=== PATIENT | female | born 2000 | race Caucasian/White ===

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

== ENCOUNTER 2020-06-17 09:42 | Emergency (ER) | payer OTHER ==
[2020-06-17 09:49] VITALS: BP 121/77; PULSE 68; RESP 18; TEMP 98.6
--- NOTE | 2020-06-17 10:23 | ED ---
General Adult HPI - General Chief complaint: Nausea/Vomiting/Diarrhea Stated complaint: Nausea Time Seen by Provider: 06/17/20 10:02 Source: patient, RN notes reviewed Mode of arrival: ambulatory Limitations: no limitations - History of Present Illness Initial comments: 21-year-old white female patient in no acute acute distress presents to the emergency room for vaginal bleeding that started on Sunday accompanied by a panic attack she states lasted about 20-30 minutes. Patient states last menstrual period was 2 weeks ago. Patient is sexually active using condoms occasionally for protection. It is not concerned for ST ice. Possibility of . Patient also endorses dysuria but denies vaginal discharge. Patient states on Sunday the vaginal bleeding soaked one pad and then turned to spotting. Sunday still spotting. No bleeding today. Patient states had one episode of diarrhea today, some nausea yesterday. Patient states stopped Lupin 2 months ago because she was having irregular periods. -: days(s) (2) - Related Data Home Medications Medication Instructions Recorded Confirmed Calcium Carb/Magnesium Hydrox 2 tab PO DAILY PRN 05/16/16 05/16/16 [Rolaids Chewable Tablet] Ibuprofen [Motrin] 600 mg PO Q6HR PRN 05/16/16 05/16/16 Previous Rx's Medication Instructions Recorded Famotidine [Pepcid] 20 mg PO BID #20 tablet 05/17/16 Ondansetron Odt [Zofran ODT] 4 mg PO Q8HR PRN #10 tab 08/08/17 Cephalexin [Keflex] 500 mg PO Q6HR 10 Days #40 cap 08/19/19 Allergies Allergy/AdvReac Type Severity Reaction Status Date / Time ibuprofen AdvReac Abdominal Verified 06/17/20 09:45 Pain Last menstrual period: 06/03/20 Review of Systems ROS Statement: Those systems with pertinent positive or pertinent negative responses have been documented in the HPI. ROS Other: All systems not noted in ROS Statement are negative. Past Medical History Past Medical History: No Reported History Additional Past Medical History / Comment(s): UTI History of Any Multi-Drug Resistant Organisms: None Reported Past Surgical History: No Surgical Hx Reported Past Psychological History: Bipolar Smoking Status: Never smoker Past Alcohol Use History: None Reported Past Drug Use History: None Reported General Exam - General Exam Comments Initial Comments: Patient complaining of suprapubic pain with palpation. Abdomen soft, bowel sounds present in all 4 quadrants. Lung sounds clear to auscultation. Limitations: no limitations General appearance: alert, in no apparent distress Head exam: Present: atraumatic, normocephalic, normal inspection Eye exam: Present: normal appearance, PERRL, EOMI. Absent: scleral icterus, conjunctival injection, periorbital swelling ENT exam: Present: normal exam, mucous membranes moist Neck exam: Present: normal inspection. Absent: tenderness, meningismus, lymphadenopathy Respiratory exam: Present: normal lung sounds bilaterally. Absent: respiratory distress, wheezes, rales, rhonchi, stridor Cardiovascular Exam: Present: regular rate, normal heart sounds GI/Abdominal exam: Present: soft (suprapubic tenderness with palpation) Speculum exam: Present: normal speculum exam Extremities exam: Present: normal inspection, full ROM, normal capillary refill. Absent: tenderness, pedal edema, joint swelling, calf tenderness Back exam: Present: normal inspection Neurological exam: Present: alert, oriented X3, CN II-XII intact Psychiatric exam: Present: normal affect, normal mood Course Vital Signs 06/17/20 09:45 Temperature 98.6 F Pulse Rate 68 Respiratory 18 Rate Blood Pressure 121/77 O2 Sat by Pulse 100 Oximetry Medical Decision Making - Medical Decision Making Urinalysis negative for infection, negative for , pelvic exam done no vaginal discharge, no cervical motion tenderness, no adnexal pain. No lesions. No vaginal bleeding noted. Patient reports only soaking one pad on Sunday and then light spotting Sunday, no bleeding today. Patient will be directed to follow up with primary care doctor regarding a new method of control since the lupin was giving her irregular periods. Patient also directed to follow up with primary care doctor about her anxiety as she does not want to medication at this time. Patient directed to start journaling to help identify triggers for her anxiety. - Lab Data Lab Results 06/17/20 06/17/20 Range/Units 10:07 10:07 Urine Color Yellow Urine Appearance Clear (Clear) Urine pH 5.5 (5.0-8.0) Ur Specific [place] 1.019 (1.001-1.035) Urine Protein Negative (Negative) Urine Glucose (UA) Negative (Negative) Urine Ketones Negative (Negative) Urine Blood Negative (Negative) Urine Nitrite Negative (Negative) Urine Bilirubin Negative (Negative) Urine Urobilinogen <2.0 (<2.0) mg/dL Ur Leukocyte Esterase Negative (Negative) Urine HCG, Qual Not Detected (Not Detectd) Disposition Clinical Impression: Vaginal bleeding Disposition: HOME SELF-CARE Condition: Good Additional Instructions: Follow up with the primary care doctor regarding control and anxiety. Return to the emergency room with increased bleeding, pain, fevers or worsening nausea and vomiting. Is patient prescribed a controlled substance at d/c from ED?: No Referrals: Nonstaff,Physician [REFERRING] - 1-2 days Time of Disposition: 11:02
[2020-06-17 10:31] LABS: Appearance,Urine Clear (Clear); Bilirubin,Urine Negative (Negative); Blood,Urine Negative (Negative); Color,Urine Yellow; Glucose,Urine (UA) Negative (Negative); Ketones,Urine Negative (Negative); Leukocyte Esterase,Urine Negative (Negative); Nitrite,Urine Negative (Negative); PH, Urine 5.5 (5.0-8.0); Protein,Urine Negative (Negative); Specific Gravity,Urine 1.019 (1.001-1.035); Urobilinogen,Urine <2.0 mg/dL (<2.0)
== END 2020-06-17 11:16 | disposition home or self-care (01) ==
LOC: EC 09:42
DX: N93.9 Abnormal uterine and vaginal bleeding, unspecified (principal); Z88.6 Allergy status to analgesic agent; Z87.440 Personal history of urinary (tract) infections
CPT/HCPCS: 81003; 81025; 99283

== ENCOUNTER 2021-05-27 21:35 | Emergency (ER) | payer OTHER ==
[2021-05-27 21:42] VITALS: RESP 18
[2021-05-27 22:47] LABS: Appearance,Urine Cloudy (Clear); Bacteria,Urine Rare /hpf; Bilirubin,Urine 2+ (Negative); Blood,Urine Negative (Negative); Color,Urine Dark Brown; Glucose,Urine (UA) Negative (Negative); Ketones,Urine Negative (Negative); Leukocyte Esterase,Urine Negative (Negative); Mucus,Urine Occasional /hpf; Nitrite,Urine Positive (Negative); Protein,Urine Trace (Negative); RBC,Urine 3 /hpf (0-5); Specific Gravity,Urine 1.026 (1.001-1.035); Squamous Epithelial Cell,Urine 4 /hpf (0-4); WBC,Urine 5 /hpf (0-5)
[2021-05-27] MEDS ORDERED: CEFDINIR 300 MG CAP PO STA (23:32)
--- NOTE | 2021-05-27 23:41 | ED ---
Female Urogenital HPI - General Chief complaint: Urogenital Stated complaint: Back pain Time Seen by Provider: 05/27/21 21:43 Source: patient, RN notes reviewed Mode of arrival: ambulatory - History of Present Illness Initial comments: This is a pleasant 20-year-old female presents complaining of dysuria, frequent urination. Patient believes she has a urinary tract infection. She was recently treated for UTI by her primary care physician. She states she took Bactrim twice daily. She believes she was on for 5 days. Patient states it seemed to get better but then became worse again a few days ago. Patient is getting burning urination with frequency. Did have mild back pain as well. No fever or chills. No abdominal pain or pelvic pain. Denies vaginal discharge. Does not believe she is . No headache, no fever or chills, no changes in vision or hearing, no sore throat or difficulty with speech, no neck pain, no chest pain or shortness of breath, no abdominal pain, no nausea or vomiting, no changes in urination or bowel movements, no numbness or tingling, no extremity pain, no skin rashes or lesions. Note that the patient is sexually active. No history of immunosuppression MD Complaint: dysuria Last Menstrual Period: 04/18/21 - Related Data Home Medications Medication Instructions Recorded Confirmed Omeprazole 40 mg PO DAILY 05/27/21 05/27/21 Previous Rx's Medication Instructions Recorded Acetaminophen [Tylenol] 500 mg PO Q4-6H PRN #24 tab 05/27/21 Cefdinir 300 mg PO Q12HR #14 cap 05/27/21 Allergies Allergy/AdvReac Type Severity Reaction Status Date / Time ibuprofen AdvReac Abdominal Verified 05/27/21 21:52 Pain Review of Systems ROS Statement: Those systems with pertinent positive or pertinent negative responses have been documented in the HPI. ROS Other: All systems not noted in ROS Statement are negative. Past Medical History Past Medical History: No Reported History Additional Past Medical History / Comment(s): UTI History of Any Multi-Drug Resistant Organisms: None Reported Past Surgical History: No Surgical Hx Reported Past Psychological History: Bipolar Smoking Status: Vaper Past Alcohol Use History: None Reported Past Drug Use History: None Reported General Exam - General Exam Comments Initial Comments: Nontoxic-appearing 20-year-old female in no acute distress. Vital signs stable, patient afebrile. Does not appear to be in any distress. General appearance: alert, in no apparent distress Head exam: Present: atraumatic, normocephalic, normal inspection Eye exam: Present: normal appearance, PERRL, EOMI. Absent: scleral icterus, conjunctival injection, periorbital swelling ENT exam: Present: normal exam, mucous membranes moist Neck exam: Present: normal inspection. Absent: tenderness, meningismus, lymphadenopathy Respiratory exam: Present: normal lung sounds bilaterally. Absent: respiratory distress, wheezes, rales, rhonchi, stridor Cardiovascular Exam: Present: regular rate, normal rhythm, normal heart sounds. Absent: systolic murmur, diastolic murmur, rubs, gallop, clicks GI/Abdominal exam: Present: soft, normal bowel sounds. Absent: distended, tenderness, guarding, rebound, rigid External exam: Present: other (Patient refused) Extremities exam: Present: normal inspection, full ROM, normal capillary refill. Absent: tenderness, pedal edema, joint swelling, calf tenderness Back exam: Present: normal inspection. Absent: full ROM, tenderness, CVA tenderness (R), CVA tenderness (L), muscle spasm Neurological exam: Present: alert, oriented X3, CN II-XII intact Psychiatric exam: Present: normal affect, normal mood Skin exam: Present: warm, dry, intact, normal color. Absent: rash Course Vital Signs 05/27/21 21:38 Temperature 98.3 F Pulse Rate 100 Respiratory 18 Rate Blood Pressure 112/72 O2 Sat by Pulse 98 Oximetry Medical Decision Making - Medical Decision Making Patient does have a positive nitrate with some abnormal cells. However there is less than 10 white cells per high-powered field. I did discuss findings with the patient. I did tell her definitively diagnostic of urinary tract infection. However, she has irritative voiding. We'll treat. I am going to go with a 7 day course of cefdinir. 300 mg twice a day. Patient was told to follow-up with her regular physician for recheck. I did suggest a pelvic examination to the patient. However the patient is deferring this examination. Seeing she'll follow-up with her regular doctor. Patient was told to return to the ER for any signs or symptoms worsen. Told to return immediately if any other problems arise. All questions answered. Treatment plan discussed. Patient in agreement - Lab Data Lab Results 05/27/21 05/27/21 Range/Units 22:21 22:21 Urine Color Dark Brown Urine Appearance Cloudy H (Clear) Urine pH 6.0 (5.0-8.0) Ur Specific [place] 1.026 (1.001-1.035) Urine Protein Trace H (Negative) Urine Glucose (UA) Negative (Negative) Urine Ketones Negative (Negative) Urine Blood Negative (Negative) Urine Nitrite Positive H (Negative) Urine Bilirubin 2+ H (Negative) Urine Urobilinogen 8.0 (<2.0) mg/dL Ur Leukocyte Esterase Negative (Negative) Urine RBC 3 (0-5) /hpf Urine WBC 5 (0-5) /hpf Ur Squamous Epith Cells 4 (0-4) /hpf Urine Bacteria Rare H (None) /hpf Urine Mucus Occasional H (None) /hpf Urine HCG, Qual Not Detected (Not Detectd) Disposition Clinical Impression: Acute UTI (urinary tract infection) Disposition: HOME SELF-CARE Instructions (If sedation given, give patient instructions): Urinary Tract Infection in Women (ED) Additional Instructions: Poni fluids, drink cranberry juice if tolerated. Make a follow-up appointment with your regular doctor. You can also make a follow-up plan with the box truck washer if needed. Take the antibiotics until they are gone. Follow-up with your regular physician as directed. Return to the ER immediately if any symptoms worsen, new symptoms arise, or any other problems develop. Prescriptions: Cefdinir 300 mg PO Q12HR #14 cap Acetaminophen [Tylenol] 500 mg PO Q4-6H PRN #24 tab PRN Reason: Pain Is patient prescribed a controlled substance at d/c from ED?: No Referrals: Eric Amaya MD [Primary Care Provider] - 1-2 days Time of Disposition: 23:35
[2021-05-27 23:49] VITALS: BP 121/89; PULSE 81; TEMP 98.7
== END 2021-05-27 23:50 | disposition home or self-care (01) ==
LOC: EC 21:35
DX: N39.0 Urinary tract infection, site not specified (principal); F17.290 Nicotine dependence, other tobacco product, uncomplicated; F31.9 Bipolar disorder, unspecified; Z88.6 Allergy status to analgesic agent
CPT/HCPCS: 81001; 81025; 99283

== ENCOUNTER 2021-08-31 14:06 | Emergency (ER) | payer OTHER ==
[2021-08-31 15:20] VITALS: BP 105/67; PULSE 79; RESP 12; TEMP 98.3
--- NOTE | 2021-08-31 15:29 | ED ---
General Adult HPI - General Chief complaint: Recheck/Abnormal Lab/Rx Stated complaint: Irregular labs-sent by Dr. Amaya Time Seen by Provider: 08/31/21 15:15 Source: patient, family, RN notes reviewed, old records reviewed Mode of arrival: ambulatory Limitations: no limitations - History of Present Illness Initial comments: This is a well-appearing 21-year-old female that presents to the emergency room sent by ultrasound for possible miscarriage. Patient states that her last menstrual period was around July 05. She did see her primary care doctor who calculated that she was approximately 8 weeks . She states that she did have a positive urine test. She was having some cramping and vaginal bleeding a few days ago but has stopped. She denies any vaginal discharge or dysuria. Ultrasound was unable to visualize an IUP or gestational sac today. States that she has no pain at this time. Patient does not know what her blood type is and has not had any initial blood work for this . She has been one other time before that resulted in a miscarriage. She does vape, denies drug use. -: days(s) Location: pelvis Severity scale (1-10): 0 Quality: other (cramping) Consistency: now resolved Associated Symptoms: other (vaginal spotting) Treatments Prior to Arrival: other (u/s) - Related Data Home Medications Medication Instructions Recorded Confirmed Omeprazole 40 mg PO DAILY 05/27/21 05/27/21 Previous Rx's Medication Instructions Recorded Acetaminophen [Tylenol] 500 mg PO Q4-6H PRN #24 tab 05/27/21 Cefdinir 300 mg PO Q12HR #14 cap 05/27/21 Allergies Allergy/AdvReac Type Severity Reaction Status Date / Time ibuprofen AdvReac Abdominal Verified 08/31/21 14:21 Pain Review of Systems ROS Statement: Those systems with pertinent positive or pertinent negative responses have been documented in the HPI. ROS Other: All systems not noted in ROS Statement are negative. Past Medical History Past Medical History: No Reported History Additional Past Medical History / Comment(s): UTI History of Any Multi-Drug Resistant Organisms: None Reported Past Surgical History: No Surgical Hx Reported Past Psychological History: Bipolar Smoking Status: Vaper Past Alcohol Use History: None Reported Past Drug Use History: None Reported General Exam Limitations: no limitations General appearance: alert, in no apparent distress Head exam: Present: atraumatic Eye exam: Absent: scleral icterus, conjunctival injection Neck exam: Present: normal inspection, full ROM. Absent: tenderness, meningismus Respiratory exam: Present: normal lung sounds bilaterally. Absent: respiratory distress, accessory muscle use Cardiovascular Exam: Present: regular rate GI/Abdominal exam: Present: soft, normal bowel sounds. Absent: distended, tenderness, guarding, rebound, rigid Extremities exam: Present: normal inspection, full ROM, normal capillary refill. Absent: tenderness, pedal edema Back exam: Present: normal inspection, full ROM. Absent: tenderness, CVA tenderness (R), CVA tenderness (L), rash noted Neurological exam: Present: alert, oriented X3 Psychiatric exam: Present: normal affect, normal mood Skin exam: Present: warm, dry, normal color, other (Multiple bruises on extremities upper and lower, many stages of healing. Patient states that she bruises easily) Course Vital Signs 08/31/21 08/31/21 14:21 15:08 Temperature 98.6 F 98.3 F Pulse Rate 65 79 Respiratory 16 12 Rate Blood Pressure 112/65 105/67 O2 Sat by Pulse 99 99 Oximetry Medical Decision Making - Medical Decision Making Patient was sent by ultrasound for possible miscarriage. There is no evidence of IUP. Patient denies vaginal bleeding or abdominal pain. Her beta count is less than 2.4, her blood type is A+, no need for RhoGAM. This appears to be a complete . She was directed to follow up with her primary care doctor . Strict return parameters were discussed with patient including fevers or lower abdominal pain. She was agreeable to this plan of care. Case discussed with Dr. Murphy. - Lab Data Result diagrams: 08/31/21 15:32 08/31/21 15:32 Lab Results 08/31/21 08/31/21 08/31/21 Range/Units 15:32 15:32 15:32 WBC 7.1 (3.8-10.6) k/uL RBC 4.67 (3.80-5.40) m/uL Hgb 15.3 (11.4-16.0) gm/dL Hct 46.5 H (34.0-46.0) % MCV 99.7 (80.0-100.0) fL MCH 32.9 (25.0-35.0) pg MCHC 33.0 (31.0-37.0) g/dL RDW 12.8 (11.5-15.5) % Plt Count 265 (150-450) k/uL MPV 8.9 Neutrophils % 73 % Lymphocytes % 21 % Monocytes % 4 % Eosinophils % 0 % Basophils % 0 % Neutrophils # 5.2 (1.3-7.7) k/uL Lymphocytes # 1.5 (1.0-4.8) k/uL Monocytes # 0.3 (0-1.0) k/uL Eosinophils # 0.0 (0-0.7) k/uL Basophils # 0.0 (0-0.2) k/uL Sodium 140 (137-145) mmol/L Potassium 3.8 (3.5-5.1) mmol/L Chloride 107 (98-107) mmol/L Carbon Dioxide 24 (22-30) mmol/L Anion Gap 9 mmol/L BUN 9 (7-17) mg/dL Creatinine 0.68 (0.52-1.04) mg/dL Est GFR (CKD-EPI)AfAm >90 (>60 ml/min/1.73 sqM) Est GFR (CKD-EPI)NonAf >90 (>60 ml/min/1.73 sqM) Glucose 83 (74-99) mg/dL Calcium 9.3 (8.4-10.2) mg/dL HCG, Quant <2.4 mIU/mL Blood Type A Positive Blood Type Recheck No Previous Record Bld Type Recheck Status [facility] 08/31/21 Range/Units 16:56 WBC (3.8-10.6) k/uL RBC (3.80-5.40) m/uL Hgb (11.4-16.0) gm/dL Hct (34.0-46.0) % MCV (80.0-100.0) fL MCH (25.0-35.0) pg MCHC (31.0-37.0) g/dL RDW (11.5-15.5) % Plt Count (150-450) k/uL MPV Neutrophils % % Lymphocytes % % Monocytes % % Eosinophils % % Basophils % % Neutrophils # (1.3-7.7) k/uL Lymphocytes # (1.0-4.8) k/uL Monocytes # (0-1.0) k/uL Eosinophils # (0-0.7) k/uL Basophils # (0-0.2) k/uL Sodium (137-145) mmol/L Potassium (3.5-5.1) mmol/L Chloride (98-107) mmol/L Carbon Dioxide (22-30) mmol/L Anion Gap mmol/L BUN (7-17) mg/dL Creatinine (0.52-1.04) mg/dL Est GFR (CKD-EPI)AfAm (>60 ml/min/1.73 sqM) Est GFR (CKD-EPI)NonAf (>60 ml/min/1.73 sqM) Glucose (74-99) mg/dL Calcium (8.4-10.2) mg/dL HCG, Quant mIU/mL Blood Type A Positive Blood Type Recheck A Pos Bld Type Recheck Status No Disposition Clinical Impression: Miscarriage Disposition: HOME SELF-CARE Condition: Good Instructions (If sedation given, give patient instructions): Miscarriage (ED) Additional Instructions: Follow-up with the primary care doctor this week. Your bHCG count was <2.4 and your blood type is A+. Ultrasound shows no evidence of an intrauterine . Increase your fluid intake and return to the emergency room with any new or concerning symptoms including abdominal pain or fevers. Is patient prescribed a controlled substance at d/c from ED?: No Referrals: Eric Amaya MD [Primary Care Provider] - 1-2 days Time of Disposition: 16:45
[2021-08-31 16:02] LABS: African American GFR (CKD) >90 (>60 ml/min/1.73 sqM); Anion Gap 9 mmol/L; Blood Urea Nitrogen 9 mg/dL (7-17); Calcium 9.3 mg/dL (8.4-10.2); Carbon Dioxide 24 mmol/L (22-30); Chloride 107 mmol/L (98-107); Glucose 83 mg/dL (74-99); Non-African American GFR(CKD) >90 (>60 ml/min/1.73 sqM); Potassium 3.8 mmol/L (3.5-5.1); Sodium 140 mmol/L (137-145)
[2021-08-31 16:12] LABS: Basophils % (A) 0 %; Eosinophils % (A) 0 %; HCT 46.5 % (34.0-46.0); HGB 15.3 gm/dL (11.4-16.0); Lymphocytes # (A) 1.5 k/uL (1.0-4.8); Lymphocytes % (A) 21 %; MCH 32.9 pg (25.0-35.0); MCV 99.7 fL (80.0-100.0); Mean Platelet Volume 8.9; Monocytes # (A) 0.3 k/uL (0-1.0); Monocytes % (A) 4 %; Neutrophils # (A) 5.2 k/uL (1.3-7.7); Neutrophils % (A) 73 %; Platelet Count 265 k/uL (150-450); RBC 4.67 m/uL (3.80-5.40); RDW 12.8 % (11.5-15.5); WBC 7.1 k/uL (3.8-10.6)
[2021-08-31 16:18] LABS: HCG,Quantitative Serum <2.4 mIU/mL
== END 2021-08-31 17:15 | disposition home or self-care (01) ==
LOC: EC 14:06
DX: O03.9 Complete or unspecified spontaneous abortion without complication (principal); F17.200 Nicotine dependence, unspecified, uncomplicated; Z88.6 Allergy status to analgesic agent; Z3A.08 8 weeks gestation of pregnancy
CPT/HCPCS: 36415; 80048; 84702; 85025; 86900; 86901

== ENCOUNTER → 2021-08-31 | Outpatient (CLI) | payer OTHER ==
--- NOTE | 2021-08-31 13:50 | US ---
EXAMINATION TYPE: Transabdominal DATE OF EXAM: 08/31/2021 1:34 PM COMPARISON: NONE CLINICAL HISTORY: O20.0 THREATENED AB. Bleeding. Hx 1 miscarriage. A1. EXAM PERFORMED: Transvaginal (TV) and Transabdominal (TA) EXAM MEASUREMENTS: GESTATIONAL AGE / DATING Physician Established: Not yet established. Dates by LMP: Patient is unsure. Patient states mid June- around 8 weeks gestation approximately. Dates by First Scan: This is first scan. Dates by Current Scan for: No IUP visualized at this time. MATERNAL ANATOMY Uterus: 6.0 x 4.4 x 3.5 cm. Anteverted. Right Ovary: 3.8 x 2.2 x 1.8 cm. Follicles seen. Left Ovary: 4.0 x 2.1 x 2.5 cm. Largest anechoic area seen is 1.0 cm. Post CDS / Adnexa: Fluid is visualized within the cul de sac. Presence of free fluid: Yes, in CDS. Presence of corpus luteal cyst: Not visualized. GESTATION / SURVEY IUP: No IUP visualized at this time. Date of LMP: Patient is unsure, she states mid June some time. Beta HcG (if available): Unknown IMPRESSION: No evidence for intrauterine . Free fluid noted within the cul-de-sac. Findings may reflect missed spontaneous however ectopic is not excluded. Correlate with serial beta hCG and/or ultrasound.
== END | disposition home or self-care (01) ==
LOC: RADUSWWP 12:56
PROVIDERS: ATTEND Family Medicine
DX: O20.0 Threatened abortion (principal); Z3A.08 8 weeks gestation of pregnancy
CPT/HCPCS: 76801; 76817

== ENCOUNTER 2021-10-10 17:31 | Observation (INO) | payer OTHER ==
[2021-10-10] MEDS ORDERED: SODIUM CHLORIDE 0.9% 1,000 ML IV STA (23:22)
--- NOTE | 2021-10-10 23:44 | ED ---
Dizziness HPI - General Source: patient, RN notes reviewed Mode of arrival: ambulatory Limitations: no limitations - History of Present Illness MD Complaint: dizziness Onset/Timin -: week(s) <Winnie Young - Last Filed: 10/11/21 03:19> <Leonard Sheehan - Last Filed: 10/11/21 22:29> - General Chief Complaint: Dizziness Stated Complaint: light headed, weakness Time Seen by Provider: 10/10/21 23:13 - History of Present Illness Initial Comments: This is a 21-year-old female who presents to the emergency department for dizziness and chest tightness/throat tightness after eating. Patient states that this first started 2 years ago, and had gone away for over a year. 2 weeks ago the symptoms returned. States that whenever she eats, her throat tightens up and she has associated chest tightness. She is able to get food down on occasions and denies any associated nausea or vomiting. Also reports shaking which she states has been present for the last week. Patient is obviously shaking in the room upon examination. Denies any fevers, chills, sore throat, cough, dyspnea, palpitations, abdominal pain, nausea, vomiting, diarrhea, back pain, or headaches. (Winnie Young) - Related Data Home Medications Medication Instructions Recorded Confirmed Omeprazole 20 mg PO DAILY 10/11/21 10/11/21 Ondansetron Odt [Zofran ODT] 4 mg PO Q8H PRN 10/11/21 10/11/21 78/Iron/Folate 1/Dha 1 cap PO DAILY 10/11/21 10/11/21 [Prenate Dha Softgel] hydrOXYzine HCL 25 mg PO HS PRN 10/11/21 10/11/21 Previous Rx's Medication Instructions Recorded Fludrocortisone [Florinef] 0.1 mg PO DAILY 14 Days #14 tab 10/11/21 Allergies Allergy/AdvReac Type Severity Reaction Status Date / Time ibuprofen AdvReac Abdominal Verified 10/11/21 07:51 Pain Review of Systems ROS Other: All systems not noted in ROS Statement are negative. <Winnie Young - Last Filed: 10/11/21 03:19> ROS Other: All systems not noted in ROS Statement are negative. <Leonard Sheehan - Last Filed: 10/11/21 22:29> ROS Statement: Those systems with pertinent positive or pertinent negative responses have been documented in the HPI. Past Medical History Past Medical History: No Reported History Additional Past Medical History / Comment(s): UTI History of Any Multi-Drug Resistant Organisms: None Reported Past Surgical History: No Surgical Hx Reported Past Psychological History: Bipolar Smoking Status: Vaper Past Alcohol Use History: None Reported Past Drug Use History: None Reported <Winnie Young - Last Filed: 10/11/21 03:19> - Past Family History Mother Family Medical History: Chest Pain / Angina <Leonard Sheehan - Last Filed: 10/11/21 22:29> General Exam Limitations: no limitations General appearance: alert, in no apparent distress Head exam: Present: atraumatic, normocephalic, normal inspection Respiratory exam: Present: normal lung sounds bilaterally. Absent: respiratory distress, wheezes, rales, rhonchi, stridor Cardiovascular Exam: Present: regular rate, normal rhythm, normal heart sounds. Absent: systolic murmur, diastolic murmur, rubs, gallop, clicks Neurological exam: Present: alert, oriented X3, CN II-XII intact Psychiatric exam: Present: normal affect, normal mood Skin exam: Present: warm, dry, intact, normal color. Absent: rash <Winnie Young - Last Filed: 10/11/21 03:19> Course Vital Signs 10/10/21 10/11/21 10/11/21 17:43 01:00 02:31 Temperature 98.2 F Pulse Rate 70 58 L Respiratory 18 19 Rate Blood Pressure 114/67 107/57 Blood Pressure 86/47 [Sitting] Blood Pressure 80/44 [Supine] O2 Sat by Pulse 98 97 Oximetry EKG Findings - EKG Comments: EKG Findings:: EKG is bradycardia 43 AK 155 QRS 1:30 QTC 376 <Leonard Sheehan - Last Filed: 10/11/21 22:29> Medical Decision Making - Lab Data Result diagrams: 10/11/21 00:02 10/11/21 00:02 - Radiology Data Radiology results: report reviewed, image reviewed <Winnie Young - Last Filed: 10/11/21 03:19> - Lab Data Result diagrams: 10/11/21 00:02 10/11/21 00:02 <Leonard Sheehan - Last Filed: 10/11/21 22:29> - Medical Decision Making This is a 21-year-old female who presents to the emergency department for dizziness. Patient noted to be positive for marijuana in UDS and lab work was o therwise nonactionable. XR chest and soft tissue of the neck had no acute abnormalities. Patient found be bradycardic with heart rate dropping into the 40s. Upon review of previous visits, the patient has heart rates from 60 to 90 beats per minute. She has not been noted to be in the 40s before. When I have gone in to speak with the patient on multiple occasions, her heart rate is in the mid to low 40s, and begins to increase to the mid to high 50s when she begins to speak. Patient will be admitted to observation for new onset bradycardia. This case was discussed in detail with the attending ED physician. Presentation, findings, and treatment plan discussed in detail as well. (Winnie Young) - Lab Data Lab Results 10/11/21 10/11/21 10/11/21 Range/Units 00:02 00:02 00:02 WBC 7.8 (3.8-10.6) k/uL RBC 4.25 (3.80-5.40) m/uL Hgb 13.9 (11.4-16.0) gm/dL Hct 41.4 (34.0-46.0) % MCV 97.3 (80.0-100.0) fL MCH 32.7 (25.0-35.0) pg MCHC 33.6 (31.0-37.0) g/dL RDW 12.1 (11.5-15.5) % Plt Count 218 (150-450) k/uL MPV 8.9 Neutrophils % 75 % Lymphocytes % 17 % Monocytes % 6 % Eosinophils % 0 % Basophils % 1 % Neutrophils # 5.9 (1.3-7.7) k/uL Lymphocytes # 1.3 (1.0-4.8) k/uL Monocytes # 0.4 (0-1.0) k/uL Eosinophils # 0.0 (0-0.7) k/uL Basophils # 0.1 (0-0.2) k/uL Sodium 136 L (137-145) mmol/L Potassium 3.8 (3.5-5.1) mmol/L Chloride 105 (98-107) mmol/L Carbon Dioxide 25 (22-30) mmol/L Anion Gap 6 mmol/L BUN 10 (7-17) mg/dL Creatinine 0.67 (0.52-1.04) mg/dL Est GFR (CKD-EPI)AfAm >90 (>60 ml/min/1.73 sqM) Est GFR (CKD-EPI)NonAf >90 (>60 ml/min/1.73 sqM) Glucose 122 H (74-99) mg/dL Calcium 8.9 (8.4-10.2) mg/dL Total Bilirubin 0.6 (0.2-1.3) mg/dL AST 19 (14-36) U/L ALT 10 (4-34) U/L Alkaline Phosphatase 43 (38-126) U/L Troponin I <0.012 (0.000-0.034) ng/mL Total Protein 6.9 (6.3-8.2) g/dL Albumin 4.3 (3.5-5.0) g/dL TSH 2.510 (0.465-4.680) mIU/L Disposition <Winnie Young - Last Filed: 10/11/21 03:19> <Leonard Sheehan - Last Filed: 10/11/21 22:29> Clinical Impression: Bradycardia Disposition: ADMITTED IP TO THIS HOSP Condition: Stable
--- NOTE | 2021-10-10 23:55 | XR ---
EXAMINATION TYPE: XR soft tissue neck DATE OF EXAM: 10/10/2021 COMPARISON: NONE HISTORY: Throat tightness TECHNIQUE: 2 views FINDINGS: Epiglottis is normal. Subglottic trachea appears normal. Tonsils and adenoids appear normal . Cervical spine appears normal. IMPRESSION: Negative cervical soft tissue exam.
--- NOTE | 2021-10-10 23:56 | XR ---
EXAMINATION TYPE: XR chest 2V DATE OF EXAM: 10/10/2021 COMPARISON: 05/17/2016 HISTORY: Chest tightness TECHNIQUE: 2 views FINDINGS: Heart and mediastinum are normal. Lungs are clear. Diaphragm is normal. Bony thorax appears normal. IMPRESSION: Normal chest. No change.
[2021-10-11 00:27] LABS: Basophils # (A) 0.1 k/uL (0-0.2); Basophils % (A) 1 %; Eosinophils % (A) 0 %; HCT 41.4 % (34.0-46.0); HGB 13.9 gm/dL (11.4-16.0); Lymphocytes # (A) 1.3 k/uL (1.0-4.8); Lymphocytes % (A) 17 %; MCH 32.7 pg (25.0-35.0); MCHC 33.6 g/dL (31.0-37.0); MCV 97.3 fL (80.0-100.0); Mean Platelet Volume 8.9; Monocytes # (A) 0.4 k/uL (0-1.0); Monocytes % (A) 6 %; Neutrophils # (A) 5.9 k/uL (1.3-7.7); Neutrophils % (A) 75 %; Platelet Count 218 k/uL (150-450); RBC 4.25 m/uL (3.80-5.40); RDW 12.1 % (11.5-15.5); WBC 7.8 k/uL (3.8-10.6)
[2021-10-11 00:59] LABS: ALT 10 U/L (4-34); AST 19 U/L (14-36); African American GFR (CKD) >90 (>60 ml/min/1.73 sqM); Albumin 4.3 g/dL (3.5-5.0); Alkaline Phosphatase 43 U/L (38-126); Anion Gap 6 mmol/L; Blood Urea Nitrogen 10 mg/dL (7-17); Calcium 8.9 mg/dL (8.4-10.2); Carbon Dioxide 25 mmol/L (22-30); Chloride 105 mmol/L (98-107); Glucose 122 mg/dL (74-99); Non-African American GFR(CKD) >90 (>60 ml/min/1.73 sqM); Potassium 3.8 mmol/L (3.5-5.1); Sodium 136 mmol/L (137-145); Total Bilirubin 0.6 mg/dL (0.2-1.3); Total Protein 6.9 g/dL (6.3-8.2)
[2021-10-11 01:29] LABS: Appearance,Urine Clear (Clear); Bilirubin,Urine Negative (Negative); Blood,Urine Negative (Negative); Color,Urine Yellow; Glucose,Urine (UA) Negative (Negative); Ketones,Urine Negative (Negative); Leukocyte Esterase,Urine Negative (Negative); Nitrite,Urine Negative (Negative); PH, Urine 6.5 (5.0-8.0); Protein,Urine Negative (Negative); Specific Gravity,Urine 1.015 (1.001-1.035); Urobilinogen,Urine <2.0 mg/dL (<2.0)
[2021-10-11 01:42] LABS: Amphetamine Screen,Urine Not Detected (NotDetected); Barbiturate Screen,Urine Not Detected (NotDetected); Benzodiazepines Screen,Urine Not Detected (NotDetected); Cocaine Screen,Urine Not Detected (NotDetected); Methadone Screen, Urine Not Detected (NotDetected); Opiate Screen,Urine Not Detected (NotDetected); Oxycodone Screen, Urine Not Detected (NotDetected); Phencyclidine Screen,Urine Not Detected (NotDetected); Tricyclic Antidepressant,Urine Not Detected (NotDetected); Urn Cannabinoid Scrn Detected (NotDetected)
[2021-10-11] MEDS ORDERED: NALOXONE 0.4 MG/ML 1 ML VIAL IV PRN (01:57)
--- NOTE | 2021-10-11 05:12 | P.HPIM ---
History of Present Illness H&P Date: 10/11/21 Patient is a 21-year-old female with a PMH of bradycardia who presents to the emergency room with complaints of dizziness. The patient reports that over the past 1 week, she has been experiencing lightheadedness and dizziness. 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 She reports that the episodes have been persistent, occurring multiple times daily. Denied experiencing fever, chills, cough, nausea, vomiting, abdominal pain, diarrhea. EKG in the emergency room revealed sinus bradycardia at [address]/T-wave changes noted as reviewed by me. Laboratory evaluation was unremarkable. Orthostatic vital signs were positive in the emergency room. Review of systems: Pertinent positives and negatives as discussed in HPI, a complete review of systems was performed and all other systems are negative. Physical examination: General: non toxic, no distress, appears at stated age, normal weight Derm: no unusual rashes/lesions, warm Head: atraumatic, normocephalic, symmetric Eyes: EOMI, no lid lag, anicteric sclera, pupils equal round reactive to light ENT: Nose and ears atraumatic Neck: No cervical lymphadenopathy, trachea midline, supple Mouth: no lip lesion, mucus membranes moist Cardiovascular: S1S2 reg, no murmur, positive dorsalis pedis pulse bilateral, no edema Lungs: CTA bilateral, no rhonchi, no rales, no accessory muscle use Abdominal: soft, nontender to palpation, no guarding Ext: muscle strength 5 out of 5 in all 4 extremities grossly, no gross muscle atrophy, no contractures, Neuro: CN II-XI grossly intact, no gross focal neuro deficits Psych: Alert, oriented, appropriate affect Assessment/plan Symptomatic bradycardia -Cardiology consulted -Cardiac monitoring -Thyroid studies DVT prophylaxis -Heparin subcu The patient is admitted with an anticipated less than 2 midnight stay for evaluation of bradycardia CODE STATUS: Full Code Discussed with: Patient Anticipated discharge date: in am Anticipated discharge place: Home Past Medical History Past Medical History: No Reported History Additional Past Medical History / Comment(s): UTI History of Any Multi-Drug Resistant Organisms: None Reported Past Surgical History: No Surgical Hx Reported Past Psychological History: Bipolar Smoking Status: Vaper Past Alcohol Use History: None Reported Past Drug Use History: None Reported - Past Family History Mother Family Medical History: Chest Pain / Angina Medications and Allergies Home Medications Medication Instructions Recorded Confirmed Type Acetaminophen [Tylenol] 500 mg PO Q4-6H PRN #24 tab 05/27/21 Rx Cefdinir 300 mg PO Q12HR #14 cap 05/27/21 Rx Omeprazole 40 mg PO DAILY 05/27/21 05/27/21 History Allergies Allergy/AdvReac Type Severity Reaction Status Date / Time ibuprofen AdvReac Abdominal Verified 08/31/21 14:21 Pain Physical Exam Vitals: Vital Signs Temp Pulse Pulse Resp BP BP BP 10/11/21 02:59 98.5 F 59 L 16 111/72 10/11/21 02:31 58 L 19 107/57 10/11/21 01:00 86/47 10/10/21 17:43 98.2 F 70 18 114/67 BP Pulse Ox 10/11/21 02:59 99 10/11/21 02:31 97 10/11/21 01:00 80/44 10/10/21 17:43 98 Intake and Output 10/10/21 10/10/21 10/11/21 14:59 22:59 06:59 Other: Weight 51.256 kg 51.256 kg Results CBC & Chem 7: 10/11/21 00:02 10/11/21 00:02 Labs: Abnormal Lab Results - Last 24 Hours (Table) 10/11/21 10/11/21 Range/Units 00:02 00:49 Sodium 136 L (137-145) mmol/L Glucose 122 H (74-99) mg/dL U Marijuana (THC) Screen Detected H (NotDetected) Thrombosis Risk Factor Assmnt - Choose All That Apply Any of the Below Risk Factors Present?: No Other Risk Factors: No Other congenital or acquired thrombophilia - If yes, enter type in comment: No Thrombosis Risk Factor Assessment Level: Very Low Risk
[2021-10-11 07:34] VITALS: RESP 15
[2021-10-11] MEDS ORDERED: FLUDROCORTISONE 0.1 MG TAB PO SCH (09:00)
--- NOTE | 2021-10-11 09:52 | P.CRDCN ---
History of Present Illness History of present illness: This is a 21 year old female with a past medical history of vaping use and daily marijuana use. 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 We have been consulted for bradycardia. Patient presents to the emergency department with complaints lightheadedness, dizziness, throat pain, some difficulty swallowing. She states this has been occurring for a few months now. She states she does get l ightheaded with standing mostly. She does endorse a syncopal episode a few weeks ago at work. She was eating lunch sitting down and felt as if maybe food was stuck in her throat she states she did lose consciousness, she did not follow up after this. She states she has not had another syncopal episode since. She has had syncopal episodes as well when she gets her labs drawn. She denies any chest pain, shortness of breath, nausea, vomiting, palpitations. She denies any medical history or cardiac history. She denies any family history of cardiac disease. She smokes marijuana 2 times daily. Denies alcohol use or illicit drug use. Patient to undergo orthostatics in the ER which were positive with a blood pressure 80/44 when standing DIAGNOSTICS EKG reveals sinus bradycardia, heart rate 43, no significant ST segment abnormalities Telemetry tracings indicate sinus mechanism with heart rate in the 4570s. Chest xray no acute cardiopulmonary process Laboratory reviewed, CBC unremarkable, troponin negative, TSH within normal limits, BUN 10, serum creatinine 0.6, UA negative, urine tox positive for marijuana Current home medications include omeprazole, Zofran, hydroxyzine, tracy min REVIEW OF SYSTEMS At the time of my exam: CONSTITUTIONAL: Denies fever or chills. CARDIOVASCULAR: Denies chest pain, shortness of breath, orthopnea, PND or palpitations. RESPIRATORY: Denies cough. GASTROINTESTINAL: Denies abdominal pain, diarrhea, constipation, nausea or vomiting. MUSCULOSKELETAL: Denies myalgias. NEUROLOGIC: Denies numbness, tingling, headacbe or weakness. ENDOCRINE: Denies fatigue, weight change, polydipsia or polyurina. GENITOURINARY: Denies burning, hematuria or urgency with micturation. HEMATOLOGIC: Denies history of anemia or bleeding. PHYSICAL EXAMINATION Blood pressure 91/58, heart rate 47, afebrile, saturation 97% on room air CONSTITUTIONAL: No apparent distress. HEENT: Head is normocephalic. Pupils are equal, round. Sclerae anicteric. Mucous membranes of the mouth are moist. No JVD. No carotid bruit. CHEST EXAMINATION: Lungs are clear to auscultation. No chest wall tenderness is noted on palpation or with deep breathing. HEART EXAMINATION: Regular rate and rhythm. S1, S2 heard. No murmurs, gallops or rub. ABDOMEN: Soft, nontender. Positive bowel sounds. EXTREMITIES: 2+ peripheral pulses, no lower extremity edema and no calf tenderness. NEUROLOGIC EXAMINATION: Patient is awake, alert and oriented x3. ASSESSMENT Dizziness, Lightheadedness, likely orthostatic hypotension History of syncopal episode, likely vasovagal Asymptomatic bradycardia Vape use Marijuana use PLAN Patient's heart rates are not significant for patient's age. Symptoms likely related to hypotension, orthostatic hypotension and vasovagal episodes. Also marijuana can be contributing to this. Recommend staring florinef short term. Obtain 2D echocardiogram and doppler study to assess cardiac structure and function. Vaping and marijuana cessation discussed with the patient Follow up with PCP as outpatient No further changes from a cardiology perspective. Discharge per primary Nurse practitioner note has been reviewed by physician. Signing provider agrees with the documented findings, assessment, and plan of care. Past Medical History Past Medical History: No Reported History Additional Past Medical History / Comment(s): UTI History of Any Multi-Drug Resistant Organisms: None Reported Past Surgical History: No Surgical Hx Reported Past Psychological History: Bipolar Smoking Status: Vaper Past Alcohol Use History: None Reported Past Drug Use History: None Reported - Past Family History Mother Family Medical History: Chest Pain / Angina Medications and Allergies Home Medications Medication Instructions Recorded Confirmed Type Omeprazole 20 mg PO DAILY 10/11/21 10/11/21 History Ondansetron Odt [Zofran Odt] 4 mg PO Q8H PRN 10/11/21 10/11/21 History 78/Iron/Folate 1/Dha 1 cap PO DAILY 10/11/21 10/11/21 History [Prenate Dha Softgel] hydrOXYzine HCL 25 mg PO HS PRN 10/11/21 10/11/21 History Allergies Allergy/AdvReac Type Severity Reaction Status Date / Time ibuprofen AdvReac Abdominal Verified 10/11/21 07:51 Pain Physical Exam Vitals: Vital Signs Temp Pulse Pulse Resp BP BP BP 10/11/21 07:34 97.9 F 47 L 15 91/58 10/11/21 07:26 46 L 10/11/21 02:59 98.5 F 59 L 16 111/72 10/11/21 02:31 58 L 19 107/57 10/11/21 01:00 10/10/21 17:43 98.2 F 70 18 114/67 BP BP Pulse Ox 10/11/21 07:34 97 10/11/21 07:26 10/11/21 02:59 99 10/11/21 02:31 97 10/11/21 01:00 86/47 80/44 10/10/21 17:43 98 Intake and Output 10/10/21 10/11/21 10/11/21 22:59 06:59 14:59 Other: # Voids 1 Weight 51.256 kg 51.256 kg Results 10/11/21 00:02 10/11/21 00:02 Cardiac Enzymes 10/11/21 10/11/21 Range/Units 00:02 00:02 AST 19 (14-36) U/L Troponin I <0.012 (0.000-0.034) ng/mL CBC 10/11/21 Range/Units 00:02 WBC 7.8 (3.8-10.6) k/uL RBC 4.25 (3.80-5.40) m/uL Hgb 13.9 (11.4-16.0) gm/dL Hct 41.4 (34.0-46.0) % Plt Count 218 (150-450) k/uL Comprehensive Metabolic Panel 10/11/21 Range/Units 00:02 Sodium 136 L (137-145) mmol/L Potassium 3.8 (3.5-5.1) mmol/L Chloride 105 (98-107) mmol/L Carbon Dioxide 25 (22-30) mmol/L BUN 10 (7-17) mg/dL Creatinine 0.67 (0.52-1.04) mg/dL Glucose 122 H (74-99) mg/dL Calcium 8.9 (8.4-10.2) mg/dL AST 19 (14-36) U/L ALT 10 (4-34) U/L Alkaline Phosphatase 43 (38-126) U/L Total Protein 6.9 (6.3-8.2) g/dL Albumin 4.3 (3.5-5.0) g/dL Current Medications Generic Name Dose Route Start Last Admin Trade Name Freq PRN Reason Stop Dose Admin Heparin Sodium (Porcine) 5,000 unit 10/11/21 08:00 Heparin Sodium,Porcine/Pf 5,000 Unit/0.5 Ml Syringe SQ Q8HR ASPEN Naloxone HCl 0.2 mg 10/11/21 01:57 Naloxone 0.4 Mg/Ml 1 Ml Vial IV Q2M PRN Opioid Reversal Intake and Output 10/10/21 10/11/21 10/11/21 22:59 06:59 14:59 Other: # Voids 1 Weight 51.256 kg 51.256 kg 10/11/21 00:02 10/11/21 00:02
[2021-10-11] MEDS: HEPARIN SODIUM,PORCINE/PF 5,000 UNIT/0.5 ML SYRINGE SQ SCH ×2 (10:05→16:05)
[2021-10-11 13:58] VITALS: BP 97/62; TEMP 98.1
[2021-10-11 14:27] VITALS: PULSE 64
--- NOTE | 2021-10-11 15:31 | CA ---
Transthoracic Echo Report Name: Yuliet Carcamo Age: 21 Gender: F : 2000 Exam Date: 10/11/2021 09:33 Exam Location: [facility] Ht (in): 61 Wt (lb): 113 Ordering Physician: Angela Chester Attending/Referring Phys: Yard Pilot Spring Reeves RDCS Procedure CPT: Indications: LV function, syncope Cardiac Hx: Technical Quality: Good Contrast 1: Total Dose (mL): Contrast 2: Total Dose (mL): MEASUREMENTS (Male / Female) Normal Values 2D ECHO LV Diastolic Diameter PLAX 4.5 cm 4.2 - 5.9 / 3.9 - 5.3 cm LV Systolic Diameter PLAX 2.7 cm IVS Diastolic Thickness 0.7 cm 0.6 - 1.0 / 0.6 - 0.9 cm LVPW Diastolic Thickness 0.7 cm 0.6 - 1.0 / 0.6 - 0.9 cm LV Relative Wall Thickness 0.3 RV Internal Dim ED PLAX 3.1 cm LA Volume 32.3 cm??? 18 - 58 / 22 - 52 cm??? M-MODE Aortic Root Diameter MM 2.8 cm LA Systolic Diameter MM 3.5 cm LA Ao Ratio MM 1.3 AV Cusp Separation MM 2.3 cm DOPPLER AV Peak Velocity 118.0 cm/s AV Peak Gradient 5.6 mmHg LVOT Peak Velocity 97.3 cm/s LVOT Peak Gradient 3.8 mmHg MV Area PHT 3.2 cm??? Mitral E Point Velocity 117.0 cm/s Mitral A Point Velocity 40.9 cm/s Mitral E to A Ratio 2.9 MV Deceleration Time 233.4 ms MV E' Velocity 15.2 cm/s Mitral E to MV E' Ratio 7.7 TR Peak Velocity 208.4 cm/s TR Peak Gradient 17.4 mmHg Right Ventricular Systolic Press 21.6 mmHg FINDINGS Left Ventricle Normal left ventricular size, wall thickness, systolic function with no obvious regional wall motion abnormalities. Normal left ventricular diastolic filling pattern for age. The ejection fraction is visually estimated at 55-60 %. Right Ventricle The right ventricle is normal in size and function. Right Atrium The right atrium is normal in size. Left Atrium The left atrium is normal in size. No evidence for an atrial septal defect. Mitral Valve Structurally normal mitral valve without significant stenosis or prolapse. There is no mitral regurgitation. Aortic Valve Structurally normal aortic valve without significant sclerosis or stenosis. There is no aortic regurgitation. Tricuspid Valve Structurally normal tricuspid valve without significant stenosis. Pulmonary artery systolic pressure is normal. Trace to mild tricuspid regurgitation. Pulmonic Valve Structurally normal pulmonic valve without significant stenosis. There is no pulmonic regurgitation. Pericardium Normal pericardium without effusion. Aorta Normal aortic root dimension. CONCLUSIONS Normal LV size and systolic function ejection fraction greater than 55% Previewed by: Dr. Kamar Cortes MD (Electronically Signed) Final Date: 11 October 2021 15:30
--- NOTE | 2021-10-11 15:57 | P.DS ---
Providers Date of admission: 10/11/21 00:39 Expected date of discharge: 10/11/21 Attending physician: Samuel Liao MD Consults: 10/11/21 01:57 Consult Physician Routine Consulting Provider: Luis Rodriguez Consult Reason/Comments: max Do you want consulting provider notified?: Yes Primary care physician: Eric Amaya Hospital Course: Discharge Diagnosis: Dizziness, lightheadedness, resolved after IV fluid hydration Orthostatic hypotension, resolved after IV fluid hydration. Cardiology started patient on Florinef and recommending outpatient follow-up in the office in one week. Patient instructed that it is of utmost importance to maintain adequate hydration and intake of nutrients. Bradycardia Daily marijuana use, recommend cessation Hospital Course: Patient is a very pleasant 21-year-old healthy female with no reported past medical history with the exception of cannabis use and occasional vaping. She presented to the emergency department on 10/10/21 with a chief complaint of dizziness ported experiencing intermittent lightheadedness and dizziness off and on over the past week and states that she fainted when giving blood last Sunday. Patient underwent full evaluation in the emergency department.. EKG was completed revealing sinus bradycardia at 43 bpm. Chest x-ray negative for acute cardiopulmonary process. CBC and CMP were unremarkable. Troponin less than 0.012. TSH normal findings at 1.030 and total T3 was 117.0. Urinalysis negative for blood, protein, or infection. Urine drug screen positive for marijuana. Initially in the emergency department orthostatic vitals were positive for orthostatic hypotension. Patient was hydrated with 1 L bolus of 0.9% normal saline followed by maintenance infusion. Patient was admitted under our services with consultation to cardiology. After IV fluid hydration and repeat orthostatic pressures were negative. Patient reported resolution of dizziness. Echocardiogram was completed revealing normal left ventricular size and systolic function with ejection fraction greater than 55%. Patient was evaluated by cardiology and she was started on low-dose Florinef and it was recommended the patient follow-up in the office in one week. Medically patient is stable for discharge and she was strongly advised to stop use of marijuana as this can also be contributing to hypotension/orthostatic hypotension and vasovagal episodes. Patient was also instructed that it is important to ensure that she is maintaining adequate hydration and intake of nutrients as dehydration can result in dizziness, hypotension, and orthostatic hypotension. Physical examination: Patient seen and examined at bedside. Vital signs reviewed and stable. General: Nontoxic, no distress and appears stated age. Derm: Skin warm and dry, normal coloration for ethnicity. Head: Atraumatic, normocephalic and symmetric. Eyes: EOMs intact, no lid lag, and anicteric sclera Mouth: no lip lesions, mucus membranes moist Cardiovascular: regular rate and rhythm with normal S1S2, no murmur, positive posterior tibial pulses bilaterally, and cap refill < 2 seconds. Lungs: Respirations even, regular, and unlabored on room air. Lungs CTA bilaterally, no rhonchi, no rales, no wheezing, and no accessory muscle usage. Abdominal: soft, nontender to palpation, no guarding, no appreciable organomegaly Ext: ROM intact. No gross muscle atrophy, no edema, no contractures Neuro: Speech clear, face symmetrical and CN II-XII grossly intact with no noted focal neuro deficits Psych: Alert and oriented to person, place, time, and situation. Appropriate and pleasant affect. A total of 31 minutes of time were spent preparing this complex discharge summary. Pt was discharged on 10/11/21 at 3:51 PM Patient Condition at Discharge: Stable Plan - Discharge Summary Discharge Rx Participant: No New Discharge Prescriptions: New Fludrocortisone [Florinef] 0.1 mg PO DAILY 14 Days #14 tab Continue 78/Iron/Folate 1/Dha [Prenate Dha Softgel] 1 cap PO DAILY hydrOXYzine HCL 25 mg PO HS PRN PRN Reason: Itching Ondansetron Odt [Zofran ODT] 4 mg PO Q8H PRN PRN Reason: Nausea Omeprazole 20 mg PO DAILY Discharge Medication List Fludrocortisone [Florinef] 0.1 mg PO DAILY 14 Days #14 tab 10/11/21 [Rx] Omeprazole 20 mg PO DAILY 10/11/21 [History] Ondansetron Odt [Zofran ODT] 4 mg PO Q8H PRN 10/11/21 [History] 78/Iron/Folate 1/Dha [Prenate Dha Softgel] 1 cap PO DAILY 10/11/21 [History] hydrOXYzine HCL 25 mg PO HS PRN 10/11/21 [History] Follow up Appointment(s)/Referral(s): Kamar Cortes MD [STAFF PHYSICIAN] - 1 Week Eric Amaya MD [Primary Care Provider] - 1-2 days Patient Instructions/Handouts: Syncope (DC), Bradycardia (DC) Activity/Diet/Wound Care/Special Instructions: Activity: As tolerated. Diet: It is important to ensure that you are maintaining adequate hydration and intake of nutrients. Dehydration can result in dizziness, hypotension, and orthostatic hypotension with vasovagal episodes. Special Instructions: Take all of your medications as directed and remember to keep all of your doctor's appointments and follow-up as needed. It is important for you to follow-up with human development professor within 2 weeks to determine if they want to continue usual on the medication Florinef that you were started on as you have only been provided with a prescription for 2 weeks. Strongly advised cessation of marijuana use as marijuana can also be contributing to hypotension, orthostatic hypotension and vasovagal episodes. Thank you for allowing us to participate in your care, it was truly a pleasure having you for our patient!!! Discharge Disposition: HOME SELF-CARE
== END 2021-10-11 17:45 | disposition home or self-care (01) ==
LOC: EC 17:31 → 6NMEDSUR 10-11 00:39
PROVIDERS: ADMIT Internal Medicine; ATTEND Internal Medicine
DX: I95.1 Orthostatic hypotension (principal); E86.0 Dehydration; R00.1 Bradycardia, unspecified; R07.89 Other chest pain; R06.02 Shortness of breath; R13.10 Dysphagia, unspecified; R07.0 Pain in throat; F31.9 Bipolar disorder, unspecified; F17.290 Nicotine dependence, other tobacco product, uncomplicated; I07.1 Rheumatic tricuspid insufficiency; Z87.440 Personal history of urinary (tract) infections; Z71.51 Drug abuse counseling and surveillance of drug abuser; Z71.3 Dietary counseling and surveillance; Z79.899 Other long term (current) drug therapy; Z88.8 Allergy status to other drugs, medicaments and biological substances; Z82.49 Family history of ischemic heart disease and other diseases of the circulatory system
CPT/HCPCS: 96372; 99285; 36415; 93005; 93306; 80053; 84443; 84484; 85025; 81003; 81025; 84480; 80306; 70360; 71046; G0378; J1644

== ENCOUNTER → 2021-11-18 | Outpatient (CLI) | payer OTHER ==
--- NOTE | 2021-11-20 18:27 | US ---
EXAMINATION TYPE: Transabdominal DATE OF EXAM: 11/18/2021 4:08 PM COMPARISON: US 2021, no IUP was seen. CLINICAL HISTORY: Z33.1 STATE. state. No pain or bleeding per patient. A1. Hx 1 miscarriage. EXAM PERFORMED: Transvaginal (TV) and Transabdominal (TA) EXAM MEASUREMENTS: GESTATIONAL AGE / DATING Physician Established: Not yet established. Dates by LMP: (8 weeks/6 days) EDC: 06/24/2022 Dates by First Scan: This is first scan. Dates by Current Scan for: ( 8 weeks/1 day) EDC: 06/29/2022 MATERNAL ANATOMY Uterus: 8.6 x 6.6 x 5.9 cm. Anteverted. Right Ovary: 3.3 x 2.5 x 2.2 cm. Left Ovary: 3.5 x 2.0 x 1.9 cm. Post CDS / Adnexa: Small amount of fluid seen in the right adnexa. Presence of free fluid: Yes, small amount seen in right adnexa: 0.8 x 0.9 x 1.2 cm. Presence of corpus luteal cyst: Not seen. Presence of subchorionic bleed: Possible- Heterogeneous, hypoechoic area seen adjacent to the gestati onal sac on the left: 1.5 x 1.1 x 0.7 cm. Heterogeneous, hypoechoic area seen adjacent to the gestational sac on the right: 1.7 x 0.9 x 0.5 cm. GESTATION / SURVEY CRL: 1.64 cm (8 weeks/1 day) Yolk Sac (normal less than 6mm): 2.4 mm. Heart Rate: 163 bpm Rhythm: Normal IUP: Viable IUP Date of LMP: 09/17/2021 IMPRESSION: 1. Single intrauterine gestation estimated at 8 weeks 1 day gestation based on the length. Cardiac ac tivity measures 163 bpm. 2. Minimal fluid within the pelvis and right adnexa. 3. There may be a small subchorionic hemorrhage adjacent to the gestational sac
== END | disposition home or self-care (01) ==
LOC: RADUSWWP 15:24
PROVIDERS: ATTEND Family Medicine
DX: Z33.1 Pregnant state, incidental (principal); Z3A.08 8 weeks gestation of pregnancy
CPT/HCPCS: 76801

== ENCOUNTER 2022-01-17 04:06 | Emergency (ER) | payer OTHER ==
[2022-01-17 04:12] VITALS: BP 107/71; RESP 16; TEMP 97.8
[2022-01-17 04:48] LABS: Appearance,Urine Clear (Clear); Bilirubin,Urine Negative (Negative); Blood,Urine Negative (Negative); Color,Urine Light Yellow; Glucose,Urine (UA) Negative (Negative); Ketones,Urine Negative (Negative); Leukocyte Esterase,Urine Negative (Negative); Nitrite,Urine Negative (Negative); Protein,Urine Negative (Negative); Specific Gravity,Urine 1.011 (1.001-1.035); Urobilinogen,Urine <2.0 mg/dL (<2.0)
[2022-01-17] MEDS ORDERED: ACETAMINOPHEN TAB 325 MG TAB PO STA (05:01)
--- NOTE | 2022-01-17 05:12 | ED ---
Female Urogenital HPI - General Chief complaint: Urogenital Stated complaint: Urogenital Time Seen by Provider: 01/17/22 04:10 Source: patient Mode of arrival: ambulatory - History of Present Illness Initial comments: 21-year-old female presents to emergency room with reported vaginal itching. States that it started a few days ago however has gotten worse. It is constant and localized to the left labia. Patient reports that it is worse with urination. Has not used any medications in an attempt to alleviate her symptoms. Denies hematuria. No fevers or chills. No vaginal bleeding or discharge. No changes in her bowel habits. Patient is currently 16 weeks [address] Chung. Denies complicating factors with this . No concern for sexually transmitted infections. No other alleviating, precipitating or modifying factors - Related Data Home Medications Medication Instructions Recorded Confirmed Omeprazole 20 mg PO DAILY 10/11/21 10/11/21 Ondansetron Odt [Zofran ODT] 4 mg PO Q8H PRN 10/11/21 10/11/21 78/Iron/Folate 1/Dha 1 cap PO DAILY 10/11/21 10/11/21 [Prenate Dha Softgel] hydrOXYzine HCL 25 mg PO HS PRN 10/11/21 10/11/21 Previous Rx's Medication Instructions Recorded Fludrocortisone [Florinef] 0.1 mg PO DAILY 14 Days #14 tab 10/11/21 Clotrimazole [Gyne-Lotrimin 2% (3 1 applicator VAGINAL HS #3 each 01/17/22 day)] Hydrocortisone Cream 1 applic TOPICAL TID #28 gm 01/17/22 [Hydrocortisone 1% Cream] Allergies Allergy/AdvReac Type Severity Reaction Status Date / Time ibuprofen AdvReac Abdominal Verified 01/17/22 04:12 Pain Review of Systems ROS Statement: Those systems with pertinent positive or pertinent negative responses have been documented in the HPI. ROS Other: All systems not noted in ROS Statement are negative. Past Medical History Past Medical History: No Reported History Additional Past Medical History / Comment(s): UTI History of Any Multi-Drug Resistant Organisms: None Reported Past Surgical History: No Surgical Hx Reported Past Psychological History: Bipolar Smoking Status: Vaper Past Alcohol Use History: None Reported Past Drug Use History: None Reported - Past Family History Mother Family Medical History: Chest Pain / Angina General Exam General appearance: alert, in no apparent distress GI/Abdominal exam: Present: soft, normal bowel sounds, other (gravid. fundus below umbilicus). Absent: distended, tenderness, guarding, rebound, rigid External exam: Present: other (excoriation to the inner left labia. No vesicular lesions. No vaginal bleeding or discharge. No lacerations or ecchymosis) Course Vital Signs 01/17/22 01/17/22 04:07 05:23 Temperature 97.8 F Pulse Rate 68 64 Respiratory 16 16 Rate Blood Pressure 107/71 O2 Sat by Pulse 100 Oximetry Medical Decision Making - Medical Decision Making Upon arrival patient is placed into room 15. Thorough history and physical exam was performed. Examination of the area demonstrated some excoriations to the left labia. Patient is ready urine sample which is negative for acute infection. Has had ultrasound is performed which demonstrates an intrauterine . There is positive movement and positive heart tones of 147. I did discuss the diagnosis, differential and treatment options. Did recommend treatment for possible yeast infection. Use medication as directed for the next 3 days. If she does not have any improvement in her symptoms she will switch over to the hydrocortisone cream. She has an appointment on January to see her [facility]. Instructed to inform her of the symptoms and return for any new or worsening symptoms. Patient was agreeable and discharged home in stable condition - Lab Data Lab Results 01/17/22 Range/Units 04:30 Urine Color Light Yellow Urine Appearance Clear (Clear) Urine pH 6.0 (5.0-8.0) Ur Specific [place] 1.011 (1.001-1.035) Urine Protein Negative (Negative) Urine Glucose (UA) Negative (Negative) Urine Ketones Negative (Negative) Urine Blood Negative (Negative) Urine Nitrite Negative (Negative) Urine Bilirubin Negative (Negative) Urine Urobilinogen <2.0 (<2.0) mg/dL Ur Leukocyte Esterase Negative (Negative) Disposition Clinical Impression: Vaginal pruritus, Second trimester Disposition: HOME SELF-CARE Condition: Stable Instructions (If sedation given, give patient instructions): Yeast Infection (ED) Additional Instructions: Use the Clotrimazole cream x 3 days first. If your symptoms do not start improving, switch over to the hydrocortisone cream. Only use mild soap and water to the area. Wear cotton underwear. Follow up with your OBGYN. Return for any new or worsening symptoms. Prescriptions: Clotrimazole [Gyne-Lotrimin 2% (3 day)] 1 applicator VAGINAL HS #3 each Hydrocortisone Cream [Hydrocortisone 1% Cream] 1 applic TOPICAL TID #28 gm Is patient prescribed a controlled substance at d/c from ED?: No Referrals: Eric Amaya MD [Primary Care Provider] - 1-2 days Time of Disposition: 05:12
[2022-01-17 05:26] VITALS: PULSE 64
== END 2022-01-17 05:26 | disposition home or self-care (01) ==
LOC: EC 04:06
DX: O26.892 Other specified pregnancy related conditions, second trimester (principal); F31.9 Bipolar disorder, unspecified; L29.2 Pruritus vulvae; Z88.6 Allergy status to analgesic agent; Z3A.16 16 weeks gestation of pregnancy
CPT/HCPCS: 81003; 99283; 99284

== ENCOUNTER 2022-04-19 23:49 | Emergency (ER) | payer OTHER ==
[2022-04-20] MEDS ORDERED: ONDANSETRON 4 MG/2 ML VIAL IVP STA (00:19)
[2022-04-20] MEDS ORDERED: ACETAMINOPHEN TAB 500 MG TAB PO STA (00:19)
[2022-04-20] MEDS ORDERED: SODIUM CHLORIDE 0.9% 2,000 ML IV ONE (00:19)
--- NOTE | 2022-04-20 00:53 | ED ---
General Adult HPI - General Chief complaint: Nausea/Vomiting/Diarrhea Stated complaint: Vomiting Time Seen by Provider: 04/20/22 00:12 Source: patient Mode of arrival: ambulatory - History of Present Illness Initial comments: Patient is a 21-year-old female currently 30 weeks presenting with chief complaint of nausea and vomiting. Patient states that starting yesterday she began to feel ill, she was experiencing the chills as well as cough and congestion. Today she began experiencing nausea and vomiting. She denies any pelvic pain or vaginal bleeding. Patient gets an occasional pain on the right side of the chest when coughing, otherwise no chest pain or difficulty breathing. Patient is a , currently follows with Dr. Chung - Related Data Home Medications Medication Instructions Recorded Confirmed Omeprazole 20 mg PO DAILY 10/11/21 10/11/21 Ondansetron Odt [Zofran ODT] 4 mg PO Q8H PRN 10/11/21 10/11/21 78/Iron/Folate 1/Dha 1 cap PO DAILY 10/11/21 10/11/21 [Prenate Dha Softgel] hydrOXYzine HCL 25 mg PO HS PRN 10/11/21 10/11/21 Previous Rx's Medication Instructions Recorded Fludrocortisone [Florinef] 0.1 mg PO DAILY 14 Days #14 tab 10/11/21 Clotrimazole [Gyne-Lotrimin 2% (3 1 applicator VAGINAL HS #3 each 01/17/22 day)] Hydrocortisone Cream 1 applic TOPICAL TID #28 gm 01/17/22 [Hydrocortisone 1% Cream] Oseltamivir [Tamiflu] 75 mg PO Q12HR 5 Days #9 cap 04/20/22 Allergies Allergy/AdvReac Type Severity Reaction Status Date / Time ibuprofen AdvReac Abdominal Verified 04/19/22 23:57 Pain Review of Systems ROS Statement: Those systems with pertinent positive or pertinent negative responses have been documented in the HPI. ROS Other: All systems not noted in ROS Statement are negative. Past Medical History Past Medical History: No Reported History Additional Past Medical History / Comment(s): UTI History of Any Multi-Drug Resistant Organisms: None Reported Past Surgical History: No Surgical Hx Reported Past Psychological History: Bipolar Smoking Status: Vaper Past Alcohol Use History: None Reported Past Drug Use History: None Reported - Past Family History Mother Family Medical History: Chest Pain / Angina General Exam Limitations: no limitations General appearance: alert, in no apparent distress Head exam: Present: atraumatic, normocephalic, normal inspection Eye exam: Present: normal appearance ENT exam: Present: normal exam, normal oropharynx, mucous membranes moist Neck exam: Present: normal inspection, full ROM, lymphadenopathy Respiratory exam: Present: normal lung sounds bilaterally. Absent: respiratory distress, wheezes, rales, rhonchi, stridor Cardiovascular Exam: Present: normal rhythm, tachycardia, normal heart sounds. Absent: systolic murmur, diastolic murmur, rubs, gallop, clicks Neurological exam: Present: alert, oriented X3, CN II-XII intact Psychiatric exam: Present: normal affect, normal mood Skin exam: Present: warm, dry, intact, normal color. Absent: rash Course Vital Signs 04/19/22 04/20/22 04/20/22 23:53 01:15 02:21 Temperature 98.1 F 98.8 F Pulse Rate 131 H 99 98 Respiratory 18 16 16 Rate Blood Pressure 104/52 109/53 110/60 O2 Sat by Pulse 132 H 97 100 Oximetry EKG Findings - EKG Comments: EKG Findings:: Sinus tachycardia with ventricular rate 113. IA interval 140. QRS 96. QT 314. QTC 430. No ST deviation. EKG interpreted by myself. Medical Decision Making - Medical Decision Making Was pt. sent in by a medical professional or institution? @No Did you speak to anyone other than the patient for history? @No Did you review nursing and triage notes? @Reviewed and agree Were old charts reviewed? @No Differential Diagnosis? @Differential includes influenza, Covid, viral URI, gastroenteritis, UTI EKG interpreted by me (3pts min.)? @Yes, sinus tachycardia rate of 113 X-rays interpreted by me (1pt min.)? @yes, no acute process CT interpreted by me (1pt min.)? @ [none] U/S interpreted by me (1pt. min.)? @ [none] What testing was considered but not performed? (CT, X-rays, U/S, labs)? Why? @None What meds were considered but not given? Why? @ [none] Did you discuss the management of the patient with other professionals? @No Did you reconcile home meds? @ [none] Was smoking cessation discussed for >3mins.? @ [none] Was critical care preformed (if so, how long)? @ [none] Were there social determinants of health that impacted care today? How? (Homelessness, low income, unemployed, alcoholism, drug addiction, transportation, low edu. Level, literacy, decrease access to med. care, halfway, rehab)? @No Was there de-escalation of care discussed even if they declined? (Discuss DNR or withdrawal of care, Hospice)? @No What co-morbidities impacted this encounter? (DM, HTN, Smoking, COPD, CAD, Cancer, CVA, Hep., AIDS, mental health diagnosis, sleep apnea, morbid obesity)? @ Was patient admitted / discharged? @Patient was evaluated with chief complaint of URI-like symptoms as well as nausea and vomiting. Symptoms started yesterday. Patient admits to chills. Physical examination patient is tachycardic. She denies any abdominal pain or vaginal bleeding. Patient is 30 weeks , heart tones range between 142 and 149. EKG showed sinus tachycardia. Urine showed 3+ ketones, patient is dehydrated and is getting IV fluids. Urine showed signs of contamination with 19 squamous epithelial cells, sent for culture. Patient tested positive for influenza A. Chest x-ray showed no acute process. Patient was given nausea medication. On reassessment patient reports improvement in her symptoms. I offered to start the patient on Tamiflu, she was agreeable. Patient was given her first dose of Tamiflu here in the ER. Patient is sent home with Tamiflu prescription and Zofran starter pack. Follow-up with [facility].Follow-up with PCP. Report back to ER with any new or worsening symptoms. Discussed return parameters and answered all questions. Patient conveyed verbal understanding and agreed to the plan. I discussed this case in detail with my attending Dr. Dos Santos Undiagnosed new problem with uncertain prognosis? @ [none] Drug Therapy requiring intensive monitoring for toxicity (Heparin, Nitro, Insulin, Cardizem)? @ [none] Were any procedures done? @ [none] Diagnosis/symptom? @Influenza A in Acute, or Chronic, or Acute on Chronic? @Acute Uncomplicated (without systemic symptoms) or Complicated (systemic symptoms)? @Uncomplicated Side effects of treatment? @ [none] Exacerbation, Progression, or Severe Exacerbation] @ [no] Poses a threat to life or bodily function? @ Unlikely Diagnosis/symptom? @Dehydration Acute, or Chronic, or Acute on Chronic? @Acute Uncomplicated (without systemic symptoms) or Complicated (systemic symptoms)? @Uncomplicated Side effects of treatment? @ [none] Exacerbation, Progression, or Severe Exacerbation] @ [no] Poses a threat to life or bodily function? @ [no] - Lab Data Lab Results 04/20/22 04/20/22 Range/Units 00:44 00:49 Urine Color Light Yellow Urine Appearance Cloudy H (Clear) Urine pH 6.0 (5.0-8.0) Ur Specific [place] 1.011 (1.001-1.035) Urine Protein Trace H (Negative) Urine Glucose (UA) Negative (Negative) Urine Ketones 3+ H (Negative) Urine Blood Negative (Negative) Urine Nitrite Negative (Negative) Urine Bilirubin Negative (Negative) Urine Urobilinogen <2.0 (<2.0) mg/dL Ur Leukocyte Esterase Large H (Negative) Urine RBC 2 (0-5) /hpf Urine WBC 5 (0-5) /hpf Ur Squamous Epith Cells 19 H (0-4) /hpf Urine Bacteria Moderate H (None) /hpf Urine Mucus Rare H (None) /hpf Influenza Type A (PCR) Detected A (Not Detectd) Influenza Type B (PCR) Not Detected (Not Detectd) RSV (PCR) Not Detected (Not Detectd) SARS-CoV-2 (PCR) Not Detected (Not Detectd) Disposition Clinical Impression: Influenza A, Dehydration Disposition: HOME SELF-CARE Condition: Good Instructions (If sedation given, give patient instructions): Influenza (ED) Additional Instructions: Follow-up with PCP and [facility]. Report back to ER with any new or worsening symptoms. Take medication as prescribed. Stay well-hydrated and get plenty of rest. Prescriptions: Oseltamivir [Tamiflu] 75 mg PO Q12HR 5 Days #9 cap Is patient prescribed a controlled substance at d/c from ED?: No Referrals: Eric Amaya MD [Primary Care Provider] - 1-2 days Zoe Chung DO [Doctor of Osteopathic Medicine] - 1-2 days Time of Disposition: 02:14
[2022-04-20 01:04] LABS: Appearance,Urine Cloudy (Clear); Bacteria,Urine Moderate /hpf; Bilirubin,Urine Negative (Negative); Blood,Urine Negative (Negative); Color,Urine Light Yellow; Glucose,Urine (UA) Negative (Negative); Ketones,Urine 3+ (Negative); Leukocyte Esterase,Urine Large (Negative); Mucus,Urine Rare /hpf; Nitrite,Urine Negative (Negative); Protein,Urine Trace (Negative); RBC,Urine 2 /hpf (0-5); Specific Gravity,Urine 1.011 (1.001-1.035); Squamous Epithelial Cell,Urine 19 /hpf (0-4); Urobilinogen,Urine <2.0 mg/dL (<2.0); WBC,Urine 5 /hpf (0-5)
--- NOTE | 2022-04-20 01:13 | XR ---
EXAMINATION TYPE: XR chest 1V portable DATE OF EXAM: 04/20/2022 COMPARISON: 10/10/2021 HISTORY: Cough TECHNIQUE: Single view FINDINGS: Heart and mediastinum are normal. Lungs are clear. Diaphragm is normal. Bony thorax appears normal IMPRESSION: Normal chest. No change.
[2022-04-20 01:22] VITALS: RESP 16
[2022-04-20] MEDS ORDERED: OSELTAMIVIR 75 MG CAP PO STA (02:11)
[2022-04-20] MEDS ORDERED: ONDANSETRON 4 MG ODT STARTER PACK 2 TAB BTL PO STA (02:14)
[2022-04-20 02:22] VITALS: BP 110/60; PULSE 98; TEMP 98.8
== END 2022-04-20 02:26 | disposition home or self-care (01) ==
LOC: EC 23:49
DX: O99.513 Diseases of the respiratory system complicating pregnancy, third trimester (principal); O99.283 Endocrine, nutritional and metabolic diseases complicating pregnancy, third trimester; O99.891 Other specified diseases and conditions complicating pregnancy; O99.333 Smoking (tobacco) complicating pregnancy, third trimester; J10.1 Influenza due to other identified influenza virus with other respiratory manifestations; E86.0 Dehydration; F17.290 Nicotine dependence, other tobacco product, uncomplicated; Z88.6 Allergy status to analgesic agent; Z3A.30 30 weeks gestation of pregnancy; Z20.822 Contact with and (suspected) exposure to COVID-19
CPT/HCPCS: 93005; 81001; 87636; 71045; 99284; 96374; 96361; J2405; S0119

== ENCOUNTER → 2022-09-04 | Outpatient (CLI) | payer OTHER ==
[2022-09-04 16:11] LABS: African American GFR (CKD) 121.3 (60.0-200.0); Albumin 4.8 g/dL (3.8-4.9); Albumin/Globulin Ratio 1.78 (1.60-3.17); BUN/Creat Ratio 19.13 Ratio (12.00-20.00); Blood Urea Nitrogen 15.3 mg/dL (9.0-27.0); Globulin 2.7 g/dL (1.6-3.3); Non-African American GFR(CKD) 104.6 (60.0-200.0); Potassium 4.2 mmol/L (3.5-5.5); Total Bilirubin 0.4 mg/dL (0.30-1.20); Total Protein 7.5 g/dL (6.2-8.2)
[2022-09-04 16:54] LABS: HCT 47.1 % (37.2-46.3); HGB 15.2 g/dL (12.0-15.0); MCH 30.6 pg (27.0-32.0); MCHC 32.3 g/dL (32.0-37.0); MCV 94.8 fL (80.0-97.0); Mean Platelet Volume 11.3 fL (9.5-12.2); NRBC Per 100 WBC 0 /100 WBCS (0.0-0.0); Platelet Count 298 X 10*3/uL (140-440); RBC 4.97 X 10*6/uL (4.10-5.20); RDW 11.7 % (11.5-14.5); WBC 8.53 X 10*3/uL (4.50-10.00)
== END | disposition home or self-care (01) ==
LOC: LABWHC1 12:17
PROVIDERS: ATTEND Internal Medicine Clinical Cardiac Electrophysiology
DX: R55 Syncope and collapse (principal); R00.2 Palpitations
CPT/HCPCS: 36415; 80053; 84443; 85027

== ENCOUNTER → 2023-03-09 | Outpatient (CLI) | payer OTHER ==
--- NOTE | 2023-03-10 08:57 | MR ---
EXAMINATION TYPE: MR brain wo con DATE OF EXAM: 03/09/2023 8:02 PM CLINICAL INDICATION:Female, 22 years old with history of G4.909 Migraine, Migraines. COMPARISON: None. TECHNIQUE: Multi planar, multi sequence imaging was performed through the brain including: T1, T2, In version recovery, Diffusion weighted imaging, and gradient echo imaging. No gadolinium was given. FINDINGS: Pineal gland cyst which is high T2 signal measuring 13 x 8 mm. The galeano-white junctions, ventricular system, and cisterns appear unremarkable. Midline structures sh ow no abnormality. Diffusion-weighted imaging shows no evidence of restricted diffusion. The suscepti bility weighted images do not reveal any evidence for micro-hemorrhage. The bone marrow signal is within normal limits. Paranasal sinuses and mastoid air cells: No significant paranasal sinus disease. Visualized orbits: Orbital contents are intact. IMPRESSION: 1. No evidence of intracranial mass or acute/subacute infarct. 2. 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
== END | disposition home or self-care (01) ==
LOC: RADMRIMAIN 19:45
PROVIDERS: ATTEND Family Medicine
DX: G43.909 Migraine, unspecified, not intractable, without status migrainosus (principal); D35.4 Benign neoplasm of pineal gland
CPT/HCPCS: 70551

== ENCOUNTER → 2023-03-19 | Outpatient (CLI) | payer OTHER ==
[2023-03-19 16:40] LABS: Basophils # (A) 0.04 X 10*3/uL (0.00-0.10); Basophils % (A) 0.8 %; Eosinophils # (A) 0.13 X 10*3/uL (0.04-0.35); Eosinophils % (A) 2.5 %; HCT 44.8 % (37.2-46.3); HGB 15.1 g/dL (12.0-15.0); Lymphocytes # (A) 1.63 X 10*3/uL (0.90-5.00); Lymphocytes % (A) 30.9 %; MCH 31.8 pg (27.0-32.0); MCHC 33.7 g/dL (32.0-37.0); MCV 94.3 FL (80.0-97.0); Mean Platelet Volume 11.2 FL (9.5-12.2); Monocytes # (A) 0.33 X 10*3/uL (0.20-1.00); Monocytes % (A) 6.3 %; NRBC Per 100 WBC 0 X 10*3/uL (0.00-0.01); Neutrophils # (A) 3.14 X 10*3/uL (1.80-7.70); Neutrophils % (A) 59.3 %; Platelet Count 306 X 10*3/uL (140-440); RBC 4.75 X 10*6/uL (4.10-5.20); RDW 12.6 % (11.5-14.5); WBC 5.28 X 10*3/uL (4.50-10.00)
[2023-03-19 17:02] LABS: % Iron Saturation 17.35 (12.00-45.00); ALT 9 U/L (8-44); AST 12 U/L (13-35); Albumin 4.4 g/dL (3.8-4.9); Alkaline Phosphatase 76 U/L (41-126); BUN/Creat Ratio 12.14 Ratio (12.00-20.00); Blood Urea Nitrogen 8.5 mg/dL (9.0-27.0); Calcium 9.5 mg/dL (8.7-10.3); Carbon Dioxide 19.9 mmol/L (21.6-31.8); Chloride 105 mmol/L (96-109); Ferritin 28.5 ng/mL (10.0-291.0); Globulin 2.2 g/dL (1.6-3.3); Glucose 93 mg/dL (70-110); Iron 51 UG/DL (50-170); Potassium 4.3 mmol/L (3.5-5.5); Sodium 138 mmol/L (135-145); Total Bilirubin 0.4 mg/dL (0.3-1.2); Total Iron Binding Capacity 294 UG/DL (228-460); Total Protein 6.6 g/dL (6.2-8.2)
== END | disposition home or self-care (01) ==
LOC: LABWHC1 11:07
PROVIDERS: ATTEND Physician Assistant Medical
DX: D50.9 Iron deficiency anemia, unspecified (principal); R51.9 Headache, unspecified
CPT/HCPCS: 36415; 80053; 82728; 83540; 83550; 85025